=== PATIENT | female | born 1980 | race Two or more races ===

== ENCOUNTER → 2020-12-29 | Day surgery (SDC) | payer OTHER ==
[~2020-12-29] MED LIST: AMBIEN10 MG PO; ATIVAN0.5 M1 PO; CATAFLAM PO; CYMBALTA30 MG PO; CYMBALTA60 MG PO; FLORINEF PO; FOLIC ACID1 MG PO; HUMIRA10 MG/0.2 SQ; HYDROXYCHLOROQUINE PO; LYRICA150 MG PO; METHOTREXATE PO; NABUMETONE500 MG PO; PERCOCET 5/3251 TAB PO; PROPRANOLOL HCL10 MG PO; PROTONIX40 MG PO; SIMPONI50 MG/0.5; SULFASALAZINE500 MG PO; SYNTHROID50 MCG PO; SYNTHROID75 MCG PO; [UNRECOGNIZED DRUG - OTHER] PO
== END | disposition home or self-care (01) ==
LOC: ADM 12-22 08:15 → CIR.AMB 07:06
PROVIDERS: ATTEND Orthopaedic Surgery Hand Surgery
DX: G56.22 Lesion of ulnar nerve, left upper limb (principal); Z20.822 Contact with and (suspected) exposure to COVID-19

== ENCOUNTER 2022-10-31 07:51 | Outpatient (CLI) | payer OTHER | END 2022-10-31 07:53 | disposition home or self-care (01) | LOC: NUCLEAR 07:51 | PROVIDERS: ATTEND Internal Medicine | DX: I50.32 Chronic diastolic (congestive) heart failure (principal); R06.00 Dyspnea, unspecified ==

== ENCOUNTER → 2023-11-28 08:38 | Outpatient (CLI) | payer OTHER | END | disposition home or self-care (01) | LOC: NUCLEAR 08:38 | PROVIDERS: ATTEND Internal Medicine Cardiovascular Disease | DX: I50.32 Chronic diastolic (congestive) heart failure (principal) ==